=== PATIENT | male | born 1995 | race Caucasian/White ===

== ENCOUNTER 2016-03-14 15:12 | Day surgery (SDC) | payer OTHER ==
[~2016-03-14] VITALS: Ht 185.4 cm; Wt 111.1 kg
[2016-03-14 15:38] LABS: ADD MIUA? NO; BILIRUBIN NEGATIVE; BLOOD NEGATIVE; COLOR YELLOW ((YELLOW)); GLUCOSE (STRIP) NEGATIVE; KETONES NEGATIVE; LEUKOCYTES NEGATIVE; NITRITE NEGATIVE; PROTEIN (STRIP) NEGATIVE; SPECIFIC GRAVITY 1.015 (1.000-1.030); UCUL ADDED? NO
[2016-03-14 15:54] LABS: HEMATOCRIT 43.8 % (38.0-50.0); MCH 29.1 PG (29.0-34.0); MCHC 35.4 G/DL (30.0-36.0); MCV 82.3 FL (86-99); MEAN PLAT.VOLUME 9.2 uM^3 (9.0-12.4); PLATELET COUNT 255 K/uL (156-360); RBC DIS.WIDTH-CV 12.3 % (11.8-14.6); RBC DIS.WIDTH-SD 36.7 % (39-53); RED BLOOD COUNT 5.32 M/uL (4.00-5.50); WHITE BLOOD COUNT 5.5 K/uL (4.1-10.2)
[2016-03-14 16:11] LABS: CHLORIDE 106 mEq/L (99-109); POTASSIUM 4.1 mEq/L (3.7-5.4); SODIUM 140 mEq/L (136-147)
[2016-03-14 16:14] LABS: GLUCOSE 85 mg/dL (70-99)
[2016-03-14 16:15] LABS: ANION GAP 14 MEQ/L (2-14)
[2016-03-14 16:16] LABS: TOTAL BILIRUBIN 0.4 mg/dL (0.0-1.0)
[2016-03-14 16:17] LABS: ALKALINE PHOSPHATASE 48 IU/L (3-129); GFR ESTIMATE (CALCULATED) > 59 mL/min/
[2016-03-14 16:18] LABS: UREA NITROGEN (BUN) 10 mg/dL (9-23)
[2016-03-14 16:21] LABS: LIPASE 18 U/L (1.0-51.0)
[2016-03-14 17:38] LABS: ABS NEUTROPHIL COUNT 4.13; PLAT.SUFFICIENCY ADEQUATE
[2016-03-14 22:00] VITALS: BP 109/62
[2016-03-15 03:27] VITALS: BP 94/53
[2016-03-15 06:57] LABS: HEMATOCRIT 40.9 % (38.0-50.0); MCH 28.9 PG (29.0-34.0); MCHC 33.7 G/DL (30.0-36.0); MCV 85.6 FL (86-99); MEAN PLAT.VOLUME 9.3 uM^3 (9.0-12.4); PLATELET COUNT 215 K/uL (156-360); RBC DIS.WIDTH-CV 12.3 % (11.8-14.6); RBC DIS.WIDTH-SD 38.8 % (39-53); RED BLOOD COUNT 4.78 M/uL (4.00-5.50); WHITE BLOOD COUNT 6.3 K/uL (4.1-10.2)
[2016-03-15 07:10] VITALS: BP 116/58
[2016-03-15 07:32] LABS: ANION GAP 8 MEQ/L (2-14); CHLORIDE 105 MEQ/L (99-109); GFR ESTIMATE (CALCULATED) > 59 mL/min/; GLUCOSE 89 mg/dL (70-99); POTASSIUM 3.8 MEQ/L (3.7-5.4); SAMPLE HEMOLYSIS CHECK 0; SAMPLE ICTERIC CHECK 0; SAMPLE LIPEMIA CHECK 0; SODIUM 140 MEQ/L (136-147); UREA NITROGEN (BUN) 8 mg/dL (9-23)
[2016-03-15 15:10] VITALS: BP 123/65
[2016-03-15 18:54] VITALS: BP 120/64
[2016-03-16] VITALS (7 sets, daily range): BP systolic 116–141; BP diastolic 58–93
[2016-03-17 03:30] VITALS: BP 123/68
[2016-03-17 07:50] LABS: HEMATOCRIT 38.8 % (38.0-50.0); MCH 28.5 PG (29.0-34.0); MCHC 33.5 G/DL (30.0-36.0); MCV 85.1 FL (86-99); MEAN PLAT.VOLUME 9.4 uM^3 (9.0-12.4); PLATELET COUNT 222 K/uL (156-360); RBC DIS.WIDTH-CV 11.9 % (11.8-14.6); RBC DIS.WIDTH-SD 36.7 % (39-53); RED BLOOD COUNT 4.56 M/uL (4.00-5.50); WHITE BLOOD COUNT 7.6 K/uL (4.1-10.2)
[2016-03-17 08:00] VITALS: BP 134/72
[2016-03-17 08:14] LABS: ANION GAP 8 MEQ/L (2-14); CHLORIDE 103 MEQ/L (99-109); GFR ESTIMATE (CALCULATED) > 59 mL/min/; GLUCOSE 92 mg/dL (70-99); POTASSIUM 4.1 MEQ/L (3.7-5.4); SAMPLE HEMOLYSIS CHECK 0; SAMPLE ICTERIC CHECK 0; SAMPLE LIPEMIA CHECK 0; SODIUM 139 MEQ/L (136-147); UREA NITROGEN (BUN) 7 mg/dL (9-23)
[2016-03-17 12:00] VITALS: BP 134/70
[2016-03-17] MEDS ORDERED: COLACE100 MG PO (15:05)
[2016-03-17] MEDS ORDERED: NORCO 5/3251 TABLET PO (15:05)
== END 2016-03-17 17:10 | disposition home or self-care (01) ==
LOC: EME 15:12 → SDC 19:01 → 2SOUTH 20:35 → 2EAST 20:35 → 2SOUTH 20:35 → 2EAST 21:53
PROVIDERS: Thoracic Surgery (Cardiothoracic Vascular Surgery)
PROC: 0DTJ0ZZ Resection of Appendix, Open Approach (ICD-10-PCS; principal; 2016-03-14)
DX: K35.80 Unspecified acute appendicitis (principal); G89.18 Other acute postprocedural pain; Z72.0 Tobacco use; Z86.79 Personal history of other diseases of the circulatory system
CPT/HCPCS: 74177; 80048; 80053; 81003; 83690; 85007; 85027; 88304; 99281; 99285; G0378; J0330; J1170; J1644; J1885; J2270; J2405; J2710; J3010; J7030; J7120